=== PATIENT | female | born 1985 | race Caucasian/White ===

== ENCOUNTER 2025-05-14 22:51 | Observation (INO) | payer SELFPAY ==
[2025-05-15 00:09] LABS: Bacteria/HPF None Seen HPF (None Seen); CAUTI Indications for Culture Pelvic or flank pain; Glucose, Urine (Dipstick) Normal (Negative); Leukocyte Negative Leu/uL (Negative); Protein, Urine (Dipstick) Negative (Neg-Trace); RBC/HPF 0-3 HPF (0-3); Specific Gravity, Urine 1.007 (1.002-1.036); WBC/HPF 0-3 HPF (0-3)
[2025-05-15 00:11] LABS: Urine Culture Reflex No No
[2025-05-15 01:19] LABS: #Basophils 0.05 10x3/uL (0.0-0.2); #Eosinophils 0.04 10x3/uL (0.0-0.7); #Monocytes 0.44 10x3/uL (0.11-0.59); #Neutrophils 8.22 10x3/uL (1.40-6.50); %Basophils 0.5 % (0.0-1.0); %Eosinophils 0.4 % (0.0-10.0); %Lymphocytes 13.3 % (21.0-51.0); %Monocytes 4.3 % (0.0-10.0); %Neutrophils 81.2 % (42.0-75.0); Hematocrit 41.5 % (36.0-47.0); Hemoglobin 13.4 g/dL (12.0-16.0); Mean Corpuscular Hemoglobin 28.0 pg (27.0-31.0); Mean Corpuscular Volume 86.6 fL (78.0-98.0); Platelet Count 255 10x3/uL (130-400); Red Blood Cell (RBC) Count 4.79 mill/uL (4.20-5.40); White Blood Cell (WBC) Count 10.13 10x3/uL (4.8-10.8)
[2025-05-15 01:41] LABS: ALT (SGPT) 36 U/L (Less than 34); AST (SGOT) 27 U/L (11-34); Albumin 4.8 g/dL (3.1-4.5); Alkaline Phosphatase 45 U/L (40-110); Anion Gap 15 mmol/L (10-20); BUN (Urea Nitrogen) 9 mg/dL (7.0-18.7); Bilirubin, Total 0.2 mg/dL (0.3-1.2); Calc. Creatinine Clearance 0 mL/min (70-130); Calcium 9.9 mg/dL (7.8-10.44); Carbon Dioxide 22 mmol/L (22-29); Chloride 107 mmol/L (98-107); Globulin 3.3 g/dL (2.4-3.5); Glucose 95 mg/dL (70-105); Lipase 39 U/L (8-78); Potassium 3.5 mmol/L (3.5-5.1); Sodium 140 mmol/L (136-145)
[2025-05-15 02:10] LABS: Pregnancy Test - Urine (BHCG) Negative (Negative); Pregu Control Background? CLEAR/WHITE (CLR/WHITE); Pregu Control Bar Appear? YES (CONTROL BAR)
[2025-05-15] MEDS ORDERED: Ketorolac Tromethamine 30 MG (1 mL) VIAL ONE ×2 (02:17→18:44)
[2025-05-15] MEDS ORDERED: Acetaminophen 325 MG TAB PO PRN (03:54)
[2025-05-15] MEDS ORDERED: hydrALAZINE 20 MG/ML VIAL SLOW IVP PRN (03:54)
[2025-05-15] MEDS ORDERED: Acetaminophen 500 MG TAB ONE (04:41)
[2025-05-15 08:17] VITALS: BMI 29.4
[2025-05-15] MEDS ORDERED: FLU (Fluarix Triv) 25-26 (6MOS UP)/PF 45 MCG/0.5 ML Syringe IM ONE (09:00)
[2025-05-15] MEDS ORDERED: fentaNYL PF 100 MCG/2 ML SYRINGE ONE (17:19)
[2025-05-15] MEDS ORDERED: Rocuronium Bromide 10 MG/ML (10ML VIAL) ONE (17:19)
[2025-05-15] MEDS ORDERED: Lidocaine 1% PF 5 ML VIAL ONE (17:19)
[2025-05-15] MEDS ORDERED: PROPOFOL 20 ML ONE (17:19)
[2025-05-15] MEDS ORDERED: Bupivacaine 0.25% HCL 30 ML VIAL ONE (18:34)
[2025-05-15] MEDS ORDERED: Ondansetron PF 4 MG/2 ML Vial ONE (18:44)
[2025-05-15] MEDS ORDERED: SUGAMMADEX SODIUM 200 MG/2 ML VIAL ONE (19:23)
[2025-05-15] MEDS ORDERED: Ondansetron PF 4 MG/2 ML Vial IVP PRN (19:47)
[2025-05-15] MEDS ORDERED: Glucagon 1 MG/ML KIT IM PRN (19:47)
[2025-05-15] MEDS ORDERED: Dextrose 50% Abboject 50 ML SYRINGE SLOW IVP PRN (19:47)
[2025-05-15] MEDS ORDERED: HYDROcodone/Acetaminophen 5/325 mg Tablet PO PRN (19:50)
[2025-05-15] MEDS ORDERED: HYDROmorphone 0.5 MG/0.5 ML SYRINGE ONE (20:19)
[2025-05-15] MEDS: Famotidine 20 MG TAB PO SCH (21:25)
[2025-05-15] MEDS: D5 1/2 NS w/20 mEq KCL 1,000 ML IV SCH (21:44)
[2025-05-15] MEDS: Ketorolac Tromethamine 30 MG (1 mL) VIAL IVP SCH (23:16)
[2025-05-16 05:47] LABS: #Basophils Less than 0.03 10x3/uL (0.0-0.2); #Eosinophils Less than 0.03 10x3/uL (0.0-0.7); #Monocytes 0.32 10x3/uL (0.11-0.59); #Neutrophils 9.48 10x3/uL (1.40-6.50); %Basophils 0.2 % (0.0-1.0); %Eosinophils 0.0 % (0.0-10.0); %Lymphocytes 6.6 % (21.0-51.0); %Monocytes 3.0 % (0.0-10.0); %Neutrophils 89.8 % (42.0-75.0); Hematocrit 33.8 % (36.0-47.0); Hemoglobin 10.9 g/dL (12.0-16.0); Mean Corpuscular Hemoglobin 27.9 pg (27.0-31.0); Mean Corpuscular Volume 86.7 fL (78.0-98.0); Platelet Count 203 10x3/uL (130-400); Red Blood Cell (RBC) Count 3.90 mill/uL (4.20-5.40); White Blood Cell (WBC) Count 10.56 10x3/uL (4.8-10.8)
[2025-05-16 06:24] LABS: ALT (SGPT) 100 U/L (Less than 34); AST (SGOT) 90 U/L (11-34); Albumin 3.5 g/dL (3.1-4.5); Alkaline Phosphatase 31 U/L (40-110); Anion Gap 9 mmol/L (10-20); BUN (Urea Nitrogen) 8 mg/dL (7.0-18.7); Bilirubin, Total 0.7 mg/dL (0.3-1.2); Calc. Creatinine Clearance 167 mL/min (70-130); Calcium 8.6 mg/dL (7.8-10.44); Carbon Dioxide 22 mmol/L (22-29); Chloride 110 mmol/L (98-107); Globulin 2.3 g/dL (2.4-3.5); Glucose 120 mg/dL (70-105); Potassium 4.1 mmol/L (3.5-5.1); Sodium 137 mmol/L (136-145)
[2025-05-16 13:15] LABS: ALT (SGPT) 102 U/L (Less than 34); AST (SGOT) 77 U/L (11-34); Albumin 3.3 g/dL (3.1-4.5); Alkaline Phosphatase 30 U/L (40-110); Bilirubin, Direct 0.4 mg/dL (0.1-0.3); Bilirubin, Total 0.8 mg/dL (0.3-1.2)
[2025-05-16 18:32] VITALS: BP 111/78; TEMP 97.4
== END 2025-05-16 16:13 | disposition home or self-care (01) ==
LOC: ERS 22:51 → ERHOLD 05-15 03:54 → MSONC 05-15 16:28
PROVIDERS: ADMIT Surgery; ATTEND Surgery
PROC: 0FT44ZZ Resection of Gallbladder, Percutaneous Endoscopic Approach (ICD-10-PCS; principal; 2025-05-15)
DX: K80.12 Calculus of gallbladder with acute and chronic cholecystitis without obstruction (principal); K82.2 Perforation of gallbladder; Z88.5 Allergy status to narcotic agent
CPT/HCPCS: 36415; 76705; 80053; 81001; 81025; 83690; 85025; 85379; 88304; 93005; 96365; 96366; 96375; 96376; C1889; G0378; J0169; J0665; J1100; J1171; J1885; J2405; J2543; J2704; J3010; J3480; J7120; S2900